=== PATIENT | female | born 1960 | race Caucasian/White ===

== ENCOUNTER 2020-09-14 08:18 | Day surgery (SDC) | payer OTHER, SELFPAY ==
--- NOTE | 2020-09-07 08:35 | NURSING ---
Pt states she received Moderna vaccines, second dose on 07/15/2020.
--- NOTE | 2020-09-07 08:36 | NURSING ---
Ibrahima blackmon she will get lab work drawn at [facility] and fax to PAT # / She states she has physical orders from Dr Amaya for CBC, BMP, HbA1c, which are the labs that are required by Anesthesia guidelines also.
[2020-09-08 06:38] LABS: Hematocrit 39.4 % (37-47); Hemoglobin 13.1 g/dL (12.0-15.0); Mean Corp Hgb Conc 33.2 g/dL (32-36); Mean Corpuscular Volume 99.2 fL (81-99); Mean Platelet Vol. 9.2 fl (6.2-12.0); Platelet Count 202 K/mm3 (150-450); RBC Distribution Width SD 44.1 fl (35.1-43.9); Red Blood Count 3.97 M/mm3 (4.2-5.4); White Blood Count 8.5 K/mm3 (4.4-11.0)
[2020-09-08 07:06] LABS: Anion Gap 6 (5-15); BUN 16 mg/dL (7-18); BUN/Creat Ratio 18.8 RATIO (10-20); Chloride 104 mmol/L (98-107); Creatinine, Serum 0.85 mg/dL (0.55-1.02); EST Glomerular Filtration Rate 73 mL/min (>60); Est Glom Filt Rate - Afr Amer 88 mL/min (>60); Glucose 137 mg/dL (74-106); Potassium 4.5 mmol/L (3.5-5.1); Sodium Level 138 mmol/L (136-145)
[2020-09-08 09:09] LABS: Hemoglobin A1c 6.8 % (3.8-5.6)
[2020-09-14 08:46] VITALS: BP 154/58; PULSE 66; RESP 16; TEMP 36.2; O2SAT 99; BMI 28.2
[2020-09-14] MEDS: Lactated Ringers 1,000 ML 100 ML IV (08:55)
[2020-09-14 09:06] LABS: Bedside Glucose 165 mg/dL (70-110)
[2020-09-14] MEDS: Cefazolin 2 GM in 0.9% Normal Saline 100 ML IV (10:11)
[2020-09-14] MEDS: Epinephrine (1 mg/ml) 1 MG/ML VIAL ×4 (10:41→13:24)
[2020-09-14] MEDS: Bupiv/Epi 0.25% 30 ML Vial (10:46)
--- NOTE | 2020-09-14 14:01 | PCM.OPRPT ---
Report of Operation Date of Procedure: 09/14/20 Pre-Operative Diagnosis: Recurrent rotator cuff tear right shoulder Post-Operative Diagnosis: same Surgery/Procedure Performed:: Revision rotator cuff repair with allograft right shoulder driveway attendant: Judah Ray Type of Anesthesia:: General/Regional Anesthesiologist: Werner Fox Grafts/Implants Used: human dermal allograft - Admit VTE Documentation VTE Present on Admission: No VTE Mechan Device Prophylaxis: SCD's, Thigh High NAHID Hose VTE Pharm Prophylaxis ordered?: No Reason prophylaxis not ordered:: Treatment Not Indicated
[2020-09-14 14:08] VITALS: BP 148/60; BP 154/58; PULSE 54; RESP 16; TEMP 36.8; O2SAT 100
[2020-09-14 14:15] VITALS: BP 116/73; BP 154/58; PULSE 58; RESP 16; O2SAT 100
[2020-09-14 14:30] VITALS: BP 144/60; BP 154/58; PULSE 59; RESP 16; O2SAT 95
[2020-09-14 14:45] VITALS: BP 148/58; BP 154/58; PULSE 58; RESP 16; TEMP 36.4; O2SAT 94
[2020-09-14 14:51] LABS: Bedside Glucose 176 mg/dL (70-110)
[2020-09-14 16:32] VITALS: BP 148/57; BP 154/58; PULSE 59; RESP 16; TEMP 36.8; O2SAT 95
== END 2020-09-14 16:33 | disposition home or self-care (01) ==
LOC: SDC 08:21 → AC 08:22
PROVIDERS: PCP Family Medicine; Referring Provider Orthopaedic Surgery; Visit Provider Orthopaedic Surgery
PROC: (CPT 29827; principal; 2020-09-14 09:40)
DX: M75.101 Unspecified rotator cuff tear or rupture of right shoulder, not specified as traumatic (principal); M19.90 Unspecified osteoarthritis, unspecified site; E11.9 Type 2 diabetes mellitus without complications; I10 Essential (primary) hypertension; I25.2 Old myocardial infarction; Z87.891 Personal history of nicotine dependence; Z79.899 Other long term (current) drug therapy; Z79.82 Long term (current) use of aspirin; Z79.4 Long term (current) use of insulin; E78.00 Pure hypercholesterolemia, unspecified
CPT/HCPCS: 01630; 29827; 36415; 80048; 82962; 83036; 85027; J7120; J2405